=== PATIENT | female | born 1960 | race Caucasian/White ===

== ENCOUNTER → 2017-06-07 | Outpatient (CLI) | payer BC ==
[~2017-06-07] MED LIST: ACIDOPHILUS100 MG PO; ASPI-266 PO; ATOR40TA PO; BILB80CA PO; BIOT5TAB PO; FLUO40CA12 PO; GLUC-113 PO; HYDR118S10 PO; MELA1TAB20 PO; MULT-974 PO; OXYC-12 PO; OXYC-199 PO; QUET50TA PO; SLEEPING AID PO; ZLP5T PO; [UNRECOGNIZED DRUG - OTHER] PO
== END ==
LOC: CARD 07:13
PROVIDERS: ATTEND Nurse Practitioner Family
DX: R07.89 Other chest pain (principal); R06.02 Shortness of breath
CPT/HCPCS: 93306

== ENCOUNTER → 2017-06-08 | Outpatient (CLI) | payer BC ==
[~2017-06-08] VITALS: Ht 160 cm; Wt 122.5 kg
[~2017-06-08] MED LIST changes: +CATHETER FLUSH 10 ML SYR IV PRN; +REGADENOSON 0.4 MG/5 ML SYR (LEXISCAN) IV ONE
[2017-06-08 08:58] VITALS: BP 102/66
[2017-06-08 09:00] VITALS: BP 139/73
[2017-06-08 09:02] VITALS: BP 130/65
--- NOTE | 2017-06-11 08:47 | STRESS TEST ---
DATE OF SERVICE: 06/08/2017 RESTING AND POST-REGADENOSON TECHNETIUM-[address] IMAGING: Baseline images were carried out after injection of 10.18 mCi technetium-99 Tetrofosmin. This was followed by 0.4 mg regadenoson and 29 mCi technetium-99 Tetrofosmin for stress imaging. The electrocardiogram showed sinus rhythm at baseline and it did not change significantly with the regadenoson infusion. Overall, she tolerated the procedure well. She reported only mild shortness of breath after regadenoson, which resolved in a few minutes. Review of images at rest and following stress does not indicate significant perfusion defect consistent with significant myocardial ischemia or infarction. Gated images show normal global left ventricular systolic function with normal regional wall motion. Left ventricular ejection fraction is calculated to be 71%. Left ventricular end diastolic volume is 26 mL. TID is absent (1.04). CONCLUSIONS: 1. No evidence of significant myocardial ischemia or infarction on this study. 2. Normal regional wall motion. 3. Normal global left ventricular systolic function with a calculated ejection fraction of 71%. Job ID: [id number] DocumentID: [id number] Dictated Date: 06/10/2017 12:54:06 Attendant [employer] Date: 06/10/2017 15:13:59 Dictated By: MISTI PIERRE MD, MA, FACP, FACC,
== END ==
LOC: CARD 07:15
PROVIDERS: ATTEND Nurse Practitioner Family
DX: R07.89 Other chest pain (principal); R06.02 Shortness of breath
CPT/HCPCS: 78452; 93017

== ENCOUNTER → 2019-04-10 | Outpatient (CLI) | payer SELFPAY ==
[~2019-04-10] MED LIST changes: -CATHETER FLUSH 10 ML SYR IV PRN; -REGADENOSON 0.4 MG/5 ML SYR (LEXISCAN) IV ONE
== END ==
LOC: CARD 08:17
PROVIDERS: ATTEND Family Medicine
DX: I51.7 Cardiomegaly (principal); R05 Cough; I08.1 Rheumatic disorders of both mitral and tricuspid valves
CPT/HCPCS: 93306

== ENCOUNTER → 2019-05-29 | Outpatient (CLI) | payer OTHER ==
--- NOTE | 2019-05-29 14:08 | Diagnostic Imaging Report ---
PROCEDURE: CT chest without contrast. TECHNIQUE: Multiple contiguous axial images were obtained through the chest without the use of intravenous contrast. Auto Exposure Controls were utilized during the CT exam to meet ALARA standards for radiation dose reduction. INDICATION: Chronic dry cough. There are no prior CT chest examinations available for comparison. The plain film examination of the chest performed on 12/15/2013 failed to show any sign of acute cardiopulmonary abnormality. On this exam, the heart size is within normal limits and stable when compared to previous. The aorta is not abnormally dilated. There is no obvious mediastinal or hilar adenopathy noted. The thyroid gland is generally unremarkable. The lungs are clear and well aerated. There is no sign of failure, pneumonia or pleural effusion to indicate an acute abnormality. There is no parenchymal lung mass noted. Sections through the upper outer show that the liver is mildly enlarged and of lower density than usually seen. This does suggest fatty metamorphosis. The gallbladder is surgically absent. Bone windows show no sign of a fracture or of a destructive lesion. There is no obvious breast mass. According to our records the patient has not had a mammogram since 2014. The patient's had a recent (within the last year) mammogram elsewhere, then no further imaging would necessary. Otherwise mammography would be recommended. IMPRESSION: 1. There is no evidence for acute cardiopulmonary abnormality. There is no parenchymal lung mass identified either. 2. The liver is mildly enlarged and low density appearance of the liver does suggest fatty metamorphosis. 3. There is no obvious breast mass. Recommendations as above. Dictated by: Dictated on workstation # [id number]
== END ==
LOC: RAD 12:48
PROVIDERS: ATTEND Family Medicine
DX: R05 Cough (principal); R16.0 Hepatomegaly, not elsewhere classified; Z90.49 Acquired absence of other specified parts of digestive tract
CPT/HCPCS: 71250

== ENCOUNTER → 2019-06-09 | Outpatient (CLI) | payer OTHER | LOC: RT 07:56 | PROVIDERS: ATTEND Family Medicine | DX: R05 Cough (principal) | CPT/HCPCS: 94060; 94726; 94729 ==

== ENCOUNTER 2019-07-27 14:30 | Outpatient (CLI) | payer OTHER ==
[~2019-07-27] VITALS: Ht 160 cm; Wt 126.2 kg
[2019-07-27] MEDS ORDERED: NFBIOT1000 PO (14:59)
[2019-07-27] MEDS ORDERED: QUET100T69 PO (14:59)
[2019-07-27] MEDS ORDERED: MULT-974 PO (14:59)
[2019-07-27] MEDS ORDERED: CHOL10008 PO (14:59)
[2019-07-27] MEDS ORDERED: CYCL10TA9 PO (14:59)
[2019-07-27] MEDS ORDERED: BILB80CA PO (14:59)
[2019-07-27] MEDS ORDERED: LOSA25TA41 PO (14:59)
[2019-07-27] MEDS ORDERED: ASPI-999 PO (14:59)
[2019-07-27] MEDS ORDERED: CITA40TA11 PO (14:59)
[2019-07-27] MEDS ORDERED: LUTE20CA2 PO (14:59)
[2019-07-27] MEDS ORDERED: PANT20TA3 PO (14:59)
[2019-07-27] MEDS ORDERED: METF-397 PO (14:59)
== END 2019-07-27 14:51 | disposition home or self-care (01) ==
LOC: PREOP 14:30
PROVIDERS: ATTEND Surgery
DX: Z01.818 Encounter for other preprocedural examination (principal)

== ENCOUNTER 2019-08-01 09:56 | Day surgery (SDC) | payer OTHER ==
[~2019-08-01] VITALS: Ht 160 cm; Wt 127.0 kg
[~2019-08-01 09:56] MED LIST changes: +ASPI-999 PO; +CHOL10008 PO; +CITA40TA11 PO; +CYCL10TA9 PO; +LOSA25TA41 PO; +LUTE20CA2 PO; +METF-397 PO; +NFBIOT1000 PO; +PANT20TA3 PO; +QUET100T69 PO
[2019-08-01 10:00] VITALS: BP 149/100
[2019-08-01] MEDS ORDERED: LACTATED RINGERS 1,000 ML IV ONE (10:04)
[2019-08-01] MEDS ORDERED: LACTATED RINGERS 1,000 ML IV STA (10:08)
--- NOTE | 2019-08-01 10:10 | Progress Note-Pre Operative ---
Pre-Operative Progress Note H&P Reviewed The H&P was reviewed, patient examined and no changes noted. Date Seen by Provider: Aug 01, 2019 Time Seen by Provider: 10:06 Date H&P Reviewed: Aug 01, 2019 Time H&P Reviewed: 10:07 Pre-Operative Diagnosis: change in bowel habits, occult + stool, gerd YOLANDA BANSAL DO Aug 01, 2019 10:10
[2019-08-01] MEDS ORDERED: HURRICAINE EXT TUBE (BENZOCAINE) XX PRN (10:15)
[2019-08-01] MEDS ORDERED: MIDAZOLAM 2 MG/2 ML (VERSED) VIAL ONE (10:31)
[2019-08-01] MEDS ORDERED: PROPOFOL INJECTION 50 ML IV ONE (10:31)
--- NOTE | 2019-08-01 11:38 | Progress Note-Post Operative ---
Post-Operative Progess Note Surgeon (s)/Costume Shop Coordinator (s) Surgeon YOLANDA BANSAL DO Costume Shop Coordinator: na Pre-Operative Diagnosis change in bowel habits, occult + stool, gerd Post-Operative Diagnosis gastritis, colon polyps Procedure & Operative Findings Date of Procedure 08/01/19 Procedure Performed/Findings egd c biopsies, colonoscopy c hot bx polypectomy Anesthesia Type per mda Estimated Blood Loss Estimated blood loss (mL): min Specimens/Packing Specimens Removed antrum, body, ge, colon polyps YOLANDA BANSAL DO Aug 01, 2019 11:38
[2019-08-01 11:40] VITALS: BP 174/79
--- NOTE | 2019-08-01 11:40 | Discharge Inst-Simple/Standard ---
Discharge Inst-Standard Patient Instructions/Follow Up Plan of Care/Instructions/FU: 2 weeks Shaun Activity as Tolerated: Yes Discharge Diet: Regular Diet YOLANDA BANSAL DO Aug 01, 2019 11:39
[2019-08-01 11:45] VITALS: BP_SYST 174; BP_SYST 175; BP_DIAS 79; BP_DIAS 80
[2019-08-01] MEDS ORDERED: HURRICAINE EXT TUBE (BENZOCAINE) ONE (11:46)
[2019-08-01 12:15] VITALS: BP 137/83
[2019-08-01 12:20] VITALS: BP 137/83
--- NOTE | 2019-08-01 15:18 | Anesthesia-General Post-Op ---
MAC Patient Condition Mental Status/LOC: Same as Preop Cardiovascular: Satisfactory Nausea/Vomiting: Absent Respiratory: Satisfactory Pain: Controlled Complications: Absent Post Op Complications Complications None Follow Up Care/Instructions Patient Instructions None needed. Anesthesiology Discharge Order Discharge Order Patient is doing well, no complaints, stable vital signs, no apparent adverse anesthesia problems. No complications reported per nursing. VALERIA MÉNDEZ CRNA Aug 01, 2019 15:18
--- NOTE | 2019-08-01 17:07 | OPERATIVE REPORT ---
DATE OF SERVICE: 08/01/2019 PREOPERATIVE DIAGNOSES: Change in bowel habits, occult positive stool and gastroesophageal reflux disease. POSTOPERATIVE DIAGNOSES: Gastritis and colon polyps. PROCEDURE: EGD with biopsies, colonoscopy with hot biopsy polypectomy x5. SURGEON: Yolanda Dunn DO ANESTHESIA: Per MDA. ESTIMATED BLOOD LOSS: None. COMPLICATIONS: None. INDICATIONS: The patient is a 58-year-old female with change in bowel habits, occult positive stool and reflux. She has a history of colon polyps. She understands risks and benefits of procedure and wished to proceed with procedure. Consent was signed in the chart. DESCRIPTION OF PROCEDURE: The patient was taken to the endoscopy suite, placed in left lateral recumbent position. Timeout was performed. Scope was inserted in mouth, down the esophagus, stomach and into the duodenum without difficulty. There were no polyps, masses or ulcerations within the duodenum. Scope was slowly retracted back into the stomach where it was further insufflated. Slight erythematous changes consistent with gastritis present. Biopsy of the antrum was obtained. Scope was retroflexed noting again some slight gastritis. Biopsy of the body was obtained. Scope was returned to its normal position, slowly withdrawn to the distal esophagus. Slight erythematous changes, questionable reflux esophagitis. Biopsy of the GE junction was obtained. Scope was then slowly retracted back until completely removed noting no other pathology. Digital rectal exam was performed. There were no palpable polyps, masses or ulcerations. Scope was inserted in the rectum, advanced all the way to the cecum with minimal difficulty. Prep was adequate with irrigation and suction. Scope was then slowly retracted back. There were no polyps, masses or ulcerations within the cecum, ascending colon. In the transverse colon, two small polyps were present, which hot biopsy polypectomy was performed. Scope was then continuously slowly retracted back until the splenic flexure where there are three polyps, which hot biopsy polypectomy was performed on these. Scope was then continued slowly retracted back. There were no polyps, masses or ulcerations in the descending and sigmoid colon. Once in the rectum, scope was retroflexed noting no other pathology. Scope was returned to its normal position, slowly withdrawn until completely removed. The patient tolerated procedure well without any complications. She was taken to recovery room in stable condition. RECOMMENDATIONS: The patient will await biopsies and we will discuss this in 2 to 3 weeks. The patient will need repeat colonoscopy in 5 years. Any issues before that will be seen at that time. Job ID: [id number] DocumentID: [id number] Dictated Date: 08/01/2019 11:43:11 Radar Engineer Date: 08/01/2019 17:06:55 Dictated By: YOLANDA DUNN DO
== END 2019-08-01 12:40 | disposition home or self-care (01) ==
LOC: ENDO 09:56
PROVIDERS: ATTEND Surgery
DX: K29.70 Gastritis, unspecified, without bleeding (principal); D12.3 Benign neoplasm of transverse colon; K21.9 Gastro-esophageal reflux disease without esophagitis; R19.5 Other fecal abnormalities; I10 Essential (primary) hypertension; E78.5 Hyperlipidemia, unspecified; J44.9 Chronic obstructive pulmonary disease, unspecified; E11.40 Type 2 diabetes mellitus with diabetic neuropathy, unspecified; E66.01 Morbid (severe) obesity due to excess calories; Z68.42 Body mass index [BMI] 45.0-49.9, adult; Z90.710 Acquired absence of both cervix and uterus; Z79.02 Long term (current) use of antithrombotics/antiplatelets; Z79.82 Long term (current) use of aspirin; Z79.84 Long term (current) use of oral hypoglycemic drugs; Z79.899 Other long term (current) drug therapy; Z86.73 Personal history of transient ischemic attack (TIA), and cerebral infarction without residual deficits; Z82.49 Family history of ischemic heart disease and other diseases of the circulatory system; Z83.79 Family history of other diseases of the digestive system; Z82.3 Family history of stroke; Z82.5 Family history of asthma and other chronic lower respiratory diseases
CPT/HCPCS: 82962

== ENCOUNTER → 2019-09-05 | Outpatient (CLI) | payer OTHER ==
[~2019-09-05] MED LIST changes: +BENZ-13 PO; +CEFU250T80 PO
--- NOTE | 2019-09-05 13:29 | Diagnostic Imaging Report ---
EXAMINATION: CT head without contrast. TECHNIQUE: Multiple contiguous axial images were obtained through the brain without the use of intravenous contrast. All CT scans use one or more of the following dose optimizing techniques: automated exposure control, MA and/or KvP adjustment based on a patient size and exam type, or iterative reconstruction. HISTORY: Fall COMPARISON: None available. FINDINGS: The castillo-white matter differentiation is normal. No mass effect or midline shift. The ventricles are normal in size and configuration. Basilar cisterns are patent. There are no intra- or extra-axial fluid collections. There is no intracranial hemorrhage. The orbits are normal. Paranasal sinuses are normal. Mastoid air cells are clear. No soft tissue abnormality is seen. No osseus lesions or fractures are seen. IMPRESSION: 1. No acute intracranial abnormality. Dictated by: Dictated on workstation # [id number]
--- NOTE | 2019-09-05 14:06 | Diagnostic Imaging Report ---
INDICATION: Memory loss and slurred speech and recent fall. TECHNIQUE: MRI brain obtained without IV contrast and compared to 05/12/2016. FINDINGS: Diffusion-weighted images demonstrate no areas of diffusion signal abnormality to suggest acute ischemic change. There is no subdural or epidural collection. There is no significant white matter disease. There are a few punctate areas of signal change in the deep white matter which are nonspecific and similar to the previous study. Ventricles are nondilated. There is an anatomic variant of persistent cavum septum pellucidum. Visualized portions of the orbits and sinuses appear unremarkable. There is no pituitary lesion seen. IMPRESSION: Minimal nonspecific deep white matter change. No significant change from 05/12/2016. No acute abnormality. Dictated by: Dictated on workstation # [id number]
== END ==
LOC: RAD 13:09
PROVIDERS: ATTEND Family Medicine
DX: S09.90XA Unspecified injury of head, initial encounter (principal); R47.81 Slurred speech; R41.3 Other amnesia; W19.XXXA Unspecified fall, initial encounter
CPT/HCPCS: 70450; 70551

== ENCOUNTER 2019-11-06 14:21 | Emergency (ER) | payer SELFPAY ==
[~2019-11-06] VITALS: Ht 160 cm; Wt 136.0 kg
[~2019-11-06 14:21] MED LIST changes: -BENZ-13 PO; -CEFU250T80 PO
[2019-11-06] MEDS ORDERED: NS IV 1000 ML 1,000 ML IV ONE (14:44)
[2019-11-06] MEDS ORDERED: NS IV 1000 ML 1,000 ML IV SCH ×2 (14:44)
[2019-11-06] MEDS ORDERED: inSUlin (REGULAR) HUMAN 1 UNIT/0.01 ML (CHARGE PER UNIT) SC ONE (14:45)
[2019-11-06] MEDS ORDERED: cefTRIAXone FOR IV USE 1,000 MG in WATER (STERILE) FOR INJECTION 10 ML IV ONE (14:45)
[2019-11-06 14:56] LABS: BASOPHILS % (AUTO) 0 % (0-10); EOSINOPHILS % (AUTO) 0 % (0-10); HEMATOCRIT 44 % (35-52); HEMOGLOBIN 14.7 G/DL (11.5-16.0); LYMPHOCYTES # (AUTO) 1.3 X 10^3 (1.0-4.0); LYMPHOCYTES % (AUTO) 23 % (12-44); MEAN CORPUSCULAR HEMOGLOBIN 34 PG (25-34); MEAN CORPUSCULAR HGB CONC 33 G/DL (32-36); MEAN CORPUSCULAR VOLUME 101 FL (80-99); MEAN PLATELET VOLUME 8.9 FL (7.4-10.4); MONOCYTES # (AUTO) 0.2 X 10^3 (0.0-1.0); MONOCYTES % (AUTO) 4 % (0-12); NEUTROPHILS % (AUTO) 73 % (42-75); PLATELET COUNT 330 10^3/uL (130-400); RED CELL DISTRIBUTION WIDTH 12.7 % (10.0-14.5); WHITE BLOOD COUNT 5.5 10^3/uL (4.3-11.0)
[2019-11-06 15:04] LABS: INR 0.9 (0.8-1.4); PROTHROMBIN TIME PATIENT 12.6 SEC (12.2-14.7)
--- NOTE | 2019-11-06 15:05 | ED General ---
General Chief Complaint: Glucose Problems Stated Complaint: HIGH BLOOD SUGAR Nursing Triage Note: PT STATES CAME FROM [facility], BS WAS TOO HIGH TO READ, CURRENT BS 363 FSBS. PT VERY ANXIOUS. PT IS CURRENTLY ON ANTIBIOTIC AND PREDNISONE Nursing Sepsis Screen: No Definite Risk Source of Information: Patient Exam Limitations: No Limitations History of Present Illness Date Seen by Provider: Nov 06, 2019 Time Seen by Provider: 14:31 Initial Comments Patient presents to ER by private conveyance from the clinic of Dr. Brown complaint of blood sugar reading high. She's been having increased thirst, urinary frequency and general malaise. She's had a cough fevers. She went to the clinic and her glucometer read high. She is on metformin 500 twice a day does not take insulin. She was described with diabetes one year ago. She is urged to start on some injectable long-acting insulin but has resisted that thus far. She denies any chest pain nausea diarrhea, sweats or fever. Allergies and Home Medications Allergies Coded Allergies: No Known Drug Allergies (Unverified , 12/15/13) Home Medications Aspirin 81 Mg Tab.chew, 81 MG PO DAILY, (Reported) Atorvastatin Calcium 40 Mg Tablet, 40 MG PO DAILY, (Reported) Bilberry Fruit Extract 80 Mg Capsule, 80 MG PO DAILY, (Reported) Biotin 1,000 Mcg Tablet, 1,000 MCG PO DAILY, (Reported) Cholecalciferol (Vitamin D3) 1,000 Unit Tab.chew, 1,000 UNIT PO DAILY, (Reported) Citalopram Hydrobromide 40 Mg Tablet, 40 MG PO DAILY, (Reported) Cyclobenzaprine HCl 10 Mg Tablet, 10 MG PO TID PRN for MUSCLE SPASMS, (Reported) Losartan Potassium 25 Mg Tablet, 25 MG PO DAILY, (Reported) Lutein 20 Mg Capsule, 20 MG PO DAILY, (Reported) Metformin HCl 500 Mg Tablet, 1,000 MG PO BID, (Reported) take 2 (500mg) tabs Multivitamin 1 Each Tablet, 1 EACH PO DAILY, (Reported) Pantoprazole Sodium 20 Mg Tablet.dr, 20 MG PO DAILY, (Reported) Quetiapine Fumarate 100 Mg Tablet, 100 MG PO HS, (Reported) Patient Home Medication List Home Medication List Reviewed: Yes Review of Systems Review of Systems Constitutional: No chills, No fever; malaise EENTM: No ear discharge, No ear pain Respiratory: cough; No short of breath Cardiovascular: No edema, No Hx of Intervention Gastrointestinal: No abdominal pain, No nausea Genitourinary: No dysuria, No frequency Musculoskeletal: No back pain, No joint pain Skin: No pruritus, No rash Psychiatric/Neurological: Denies Headache, Denies Numbness Past Mlodfbw-Fjfpow-Avwtuq Hx Patient Social History Alcohol Use: Denies Use Recreational Drug Use: No (HX) Drug of Choice: MULTIPLE Smoking Status: Never a Smoker 2nd Hand Smoke Exposure: Yes Recent Foreign Travel: No Contact w/Someone Who Travel: No Recent Infectious Disease Expo: No Recent Hopitalizations: No Physical Abuse: No Sexual Abuse: No Immunizations Up To Date Tetanus Booster (TDap): Unknown Date of Influenza Vaccine: Aug 08, 2014 Seasonal Allergies Seasonal Allergies: Yes (mild) Past Medical History Surgeries: Yes (RIGHT ANKLE X2, LAP CARLOS, bilat TKR, ) Appendectomy, Gallbladder, Hysterectomy Respiratory: No Cardiac: No Neurological: No (2003 HAD A MILD SEIZURE, NONE SINCE THINKS IT WAS RELATED TO MEDS) Reproductive Disorders: No Genitourinary: No Gastrointestinal: Yes Gastroesophageal Reflux, Polyps Musculoskeletal: Yes Arthritis Endocrine: Yes Diabetes, Non-Insulin dep Cancer: No Psychosocial: Yes Anxiety, Depression Integumentary: No Blood Disorders: No Adverse Reaction/Blood Tranf: No Family Medical History Alcoholism 03 MOTHER Cancer 03 MOTHER (OVARIAN) 09 BROTHER Congestive heart failure 03 FATHER Dementia 03 MOTHER Family history: Arthritis 03 FATHER 03 MOTHER Family history: Asthma SON Family history: Cardiovascular disease 03 MOTHER Family history: Diabetes mellitus 03 MOTHER Family history: Hypertension 03 FATHER 03 MOTHER Myocardial infarction 03 MOTHER No Family History of: Abdominal aortic aneurysm Family history: Alzheimer's disease Family history: Breast disease Family history: Gastrointestinal disease Family history: Thyroid disorder Hereditary disease History of - respiratory disease Stroke Physical Exam Vital Signs Vital Signs - First Documented 11/06/19 14:35 Temp 36.9 Pulse 107 Resp 18 B/P (MAP) 174/104 (127) Pulse Ox 95 Capillary Refill : Less Than 3 Seconds Height, Weight, BMI Height: 5'3.00" Weight: 270lbs. 0.0oz. 122.422831lo; 53.00 BMI Method:Stated General Appearance: Mild Distress, Obese Eyes: Bilateral Eye Normal Inspection, Bilateral Eye PERRL, Bilateral Eye EOMI HEENT: PERRL/EOMI, TMs Normal, Normal ENT Inspection, Pharynx Normal; No Moist Mucous Membranes Neck: Full Range of Motion, Normal Inspection Respiratory: No Accessory Muscle Use, No Respiratory Distress, Rhonci (bilateral) Cardiovascular: Regular Rate, Rhythm, No Edema Gastrointestinal: Normal Bowel Sounds, Non Tender, Soft Extremity: Normal Capillary Refill, Normal Inspection Neurologic/Psychiatric: Alert, Oriented x3, No Motor/Sensory Deficits Skin: Normal Color, Warm/Dry Focused Exam Lactate Level 11/06/19 15:06: Lactic Acid Level 2.68*H 11/06/19 17:10: Lactic Acid Level Laboratory Tests Test 11/06/19 15:06 11/06/19 17:10 Lactic Acid Level 2.68 MMOL/L (0.50-2.00) *H Progress/Results/Core Measures Suspected Sepsis Recent Fever Within 48 Hours: No Infection Criteria Present: None New/Unexplained Altered Menta: No Sepsis Screen: No Definite Risk SIRS Temperature: Pulse: 107 Respiratory Rate: 18 Laboratory Tests 11/06/19 14:45: White Blood Count 5.5 Blood Pressure 174 /104 Mean: 127 11/06/19 15:06: Lactic Acid Level 2.68*H 11/06/19 17:10: Laboratory Tests 11/06/19 14:45: Creatinine 1.31H, INR Comment 0.9, Platelet Count 330, Total Bilirubin 0.5 Results/Orders Lab Results Laboratory Tests Test 11/06/19 14:44 11/06/19 14:45 11/06/19 15:06 11/06/19 15:27 Range/Units Glucometer 363 H 70-110 MG/DL White Blood Count 5.5 4.3-11.0 10^3/uL Red Blood Count 4.39 4.35-5.85 10^6/uL Hemoglobin 14.7 11.5-16.0 G/DL Hematocrit 44 35-52 % Mean Corpuscular Volume 101 H 80-99 FL Mean Corpuscular Hemoglobin 34 25-34 PG Mean Corpuscular Hemoglobin Concent 33 32-36 G/DL Red Cell Distribution Width 12.7 10.0-14.5 % Platelet Count 330 130-400 10^3/uL Mean Platelet Volume 8.9 7.4-10.4 FL Neutrophils (%) (Auto) 73 42-75 % Lymphocytes (%) (Auto) 23 12-44 % Monocytes (%) (Auto) 4 0-12 % Eosinophils (%) (Auto) 0 0-10 % Basophils (%) (Auto) 0 0-10 % Neutrophils # (Auto) 4.0 1.8-7.8 X 10^3 Lymphocytes # (Auto) 1.3 1.0-4.0 X 10^3 Monocytes # (Auto) 0.2 0.0-1.0 X 10^3 Eosinophils # (Auto) 0.0 0.0-0.3 10^3/uL Basophils # (Auto) 0.0 0.0-0.1 10^3/uL Prothrombin Time 12.6 12.2-14.7 SEC INR Comment 0.9 0.8-1.4 Activated Partial Thromboplast Time 30 24-35 SEC Sodium Level 136 135-145 MMOL/L Potassium Level 4.9 3.6-5.0 MMOL/L Chloride Level 102 98-107 MMOL/L Carbon Dioxide Level 22 21-32 MMOL/L Anion Gap 12 5-14 MMOL/L Blood Urea Nitrogen 22 H 7-18 MG/DL Creatinine 1.31 H 0.60-1.30 MG/DL Estimat Glomerular Filtration Rate 42 BUN/Creatinine Ratio 17 Glucose Level 420 *H 70-105 MG/DL Calcium Level 9.8 8.5-10.1 MG/DL Corrected Calcium 8.5-10.1 MG/DL Total Bilirubin 0.5 0.1-1.0 MG/DL Aspartate Amino Transf (AST/SGOT) 160 H 5-34 U/L Alanine Aminotransferase (ALT/SGPT) 277 H 0-55 U/L Alkaline Phosphatase 278 H 40-136 U/L Total Protein 8.0 6.4-8.2 GM/DL Albumin 4.7 H 3.2-4.5 GM/DL Lipase 14 8-78 U/L Lactic Acid Level 2.68 *H 0.50-2.00 MMOL/L Urine Color YELLOW Urine Clarity CLEAR Urine pH 5.5 5-9 Urine Specific [place] 1.015 L 1.016-1.022 Urine Protein NEGATIVE NEGATIVE Urine Glucose (UA) 3+ H NEGATIVE Urine Ketones NEGATIVE NEGATIVE Urine Nitrite POSITIVE NEGATIVE Urine Bilirubin NEGATIVE NEGATIVE Urine Urobilinogen 0.2 < = 1.0 MG/DL Urine Leukocyte Esterase NEGATIVE NEGATIVE Urine RBC (Auto) NEGATIVE NEGATIVE Urine RBC NONE /HPF Urine WBC 0-2 /HPF Urine Squamous Epithelial Cells RARE /HPF Urine Crystals NONE /LPF Urine Bacteria MODERATE H /HPF Urine Casts NONE /LPF Urine Mucus NEGATIVE /LPF Urine Culture Indicated CULTURE PENDING Test 11/06/19 16:18 11/06/19 17:10 Range/Units Glucometer 190 H 70-110 MG/DL Micro Results Microbiology 11/06/19 Influenza Types A,B Antigen (TIMOTEO) - Final, Complete My Orders Orders - ADRIANA HOLBROOK Cbc With Automated Diff (11/06/19 14:44) Comprehensive Metabolic Panel (11/06/19 14:44) Blood Culture (11/06/19 14:44) Sputum Culture (11/06/19 14:44) Urinalysis (11/06/19 14:44) Urine Culture (11/06/19 14:44) Protime With Inr (11/06/19 14:44) Partial Thromboplastin Time (11/06/19 14:44) Chest 1 View, Ap/Pa Only (11/06/19 14:44) Ed Iv/Invasive Line Start (11/06/19 14:44) Ed Iv/Invasive Line Start (11/06/19 14:44) Vital Signs Adult Sepsis Patie Q15M (11/06/19 14:44) O2 (11/06/19 14:44) Remove Rings In Anticipation O (11/06/19 14:44) Lactic Acid Analyzer (11/06/19 14:44) Influenza A And B Antigens (11/06/19 14:44) Ns Iv 1000 Ml (Sodium Chloride 0.9%) (11/06/19 14:44) Ceftriaxone For Iv Use (Rocephin For I (11/06/19 14:45) Ed Iv/Invasive Line Start (11/06/19 14:44) Ns Iv 1000 Ml (Sodium Chloride 0.9%) (11/06/19 14:44) Ns Iv 1000 Ml (Sodium Chloride 0.9%) (11/06/19 14:44) Accucheck Stat ONCE (11/06/19 14:44) Insulin (Regular) Human (Humulin R (Per (11/06/19 14:45) Lipase (11/06/19 15:35) Accucheck Stat ONCE (11/06/19 16:13) Medications Given in ED Current Medications Medications Dose Ordered Sig/Darci Route Start Time Stop Time Status Last Admin Dose Admin Ceftriaxone Sodium 1000 mg/ Sterile Water 10 ml @ 200 mls/hr ONCE ONCE IV 11/06/19 14:45 11/06/19 14:47 DC 11/06/19 15:55 200 MLS/HR Insulin Human Regular 10 unit ONCE ONCE SC 11/06/19 14:45 11/06/19 14:46 DC 11/06/19 15:12 10 UNIT Sodium Chloride 1,000 ml @ 0 mls/hr Q0M ONCE IV 11/06/19 14:44 11/06/19 14:46 DC 11/06/19 15:55 1,000 MLS/HR Vital Signs/I&O 11/06/19 14:35 Temp 36.9 Pulse 107 Resp 18 B/P (MAP) 174/104 (127) Pulse Ox 95 Capillary Refill : Less Than 3 Seconds Blood Pressure Mean: 127 Progress Note #1: Time: 15:05 Progress Note 10 units regular insulin subcutaneous, 3 L of IV fluid would be sufficient. Labs, chest x-ray, influenza swab, septic workup given her tachycardia and possible upper respiratory tract infection versus pneumonia. Progress Note #2: Time: 17:26 Progress Note Blood sugar improved significantly down to 190. She was very dehydrated from her hyperglycemia but she is doing better now and we can send her home. We'll put her on 10 units of Levemir to cover her tonight. Follow-up in the next day or 2 with primary care. Diagnostic Imaging Diagonstic Imaging: Xray Plain Films/CT/US/NM/MRI: chest (1v) Comments NAME: JUAN BRANDON [facility] REC#: [id number] PT STATUS: REG ER : 1960 PHYSICIAN: ADRIANA HOLBROOK MD ADMIT DATE: 11/06/19/ER Draft Date of Exam:11/06/19 CHEST 1 VIEW, AP/PA ONLY INDICATION: Hyperglycemia. COMPARISON: December 15, 2013. TECHNIQUE: Single radiograph of the chest dated November 06, 2019. FINDINGS: The cardiac silhouette is within normal limits in size. No significant pulmonary vascular congestion. The lungs are clear of focal pulmonary opacity. No pleural effusion. No pneumothorax. No acute osseous abnormality. IMPRESSION: Similar-appearing examination without acute cardiopulmonary abnormality. Dictated on workstation # [id number] Dict: 11/06/19 1547 Trans: 11/06/19 1602 [id number] Interpreted by: SARAH LOPEZ MD Electronically signed by: Reviewed: Reviewed by Me Departure Impression Primary Impression: Hyperglycemia Additional Impressions: Diabetes mellitus type 2 Qualified Codes: E11.69 - Type 2 diabetes mellitus with other specified complication Dehydration Bronchitis Disposition: HOME, SELF-CARE Condition: Improved Departure-Patient Inst. Decision time for Depature: 17:28 Referrals: DILLON BROWN MD (PCP/Family) Primary Care Physician Patient Instructions: Diabetes Type 2 (DC) Add. Discharge Instructions: Tomorrow morning call your clinic and request follow-up appointment in the next 1-2 days for your diabetes. The insulin we gave you today should cover you until tomorrow. Avoid concentrated carbohydrates, sweets, potatoes, rice, bread etc. No soda or sugary drinks. High-fiber vegetables, white meat and fats only. All discharge instructions reviewed with patient and/or family. Voiced understanding. Work/School Note: Work Release Form Date Seen in the Emergency Department: Nov 06, 2019 Return to Work: Nov 08, 2019 Copy Copies To 1: JOE KEY TITUS J Nov 06, 2019 15:05
[2019-11-06 15:12] LABS: ALANINE AMINOTRANSFERASE 277 U/L (0-55); ALBUMIN 4.7 GM/DL (3.2-4.5); ALKALINE PHOSPHATASE 278 U/L (40-136); BILIRUBIN,TOTAL 0.5 MG/DL (0.1-1.0); BUN/CREATININE RATIO 17; CALCIUM 9.8 MG/DL (8.5-10.1); CARBON DIOXIDE 22 MMOL/L (21-32); CHLORIDE 102 MMOL/L (98-107); CREATININE SERUM 1.31 MG/DL (0.60-1.30); GFR ESTIMATED 42; POTASSIUM 4.9 MMOL/L (3.6-5.0); SODIUM 136 MMOL/L (135-145)
[2019-11-06 15:29] LABS: GLUCOSE 420 MG/DL (70-105)
[2019-11-06 15:36] LABS: BILIRUBIN,URINE NEGATIVE (NEGATIVE); CLARITY,URINE CLEAR; COLOR,URINE YELLOW; GLUCOSE, URINE (UA) 3+ (NEGATIVE); KETONES,URINE NEGATIVE (NEGATIVE); LEUKOCYTE ESTERASE ,URINE NEGATIVE (NEGATIVE); NITRITE,URINE POSITIVE (NEGATIVE); PH,URINE 5.5 (5-9); PROTEIN,URINE NEGATIVE (NEGATIVE)
[2019-11-06 15:47] LABS: BACTERIA,URINE MODERATE /HPF; SQUAMOUS EPITHELIAL CELL,UR RARE /HPF; WBC,URINE 0-2 /HPF
--- NOTE | 2019-11-06 16:03 | Diagnostic Imaging Report ---
INDICATION: Hyperglycemia. COMPARISON: December 15, 2013. TECHNIQUE: Single radiograph of the chest dated November 06, 2019. FINDINGS: The cardiac silhouette is within normal limits in size. No significant pulmonary vascular congestion. The lungs are clear of focal pulmonary opacity. No pleural effusion. No pneumothorax. No acute osseous abnormality. IMPRESSION: Similar-appearing examination without acute cardiopulmonary abnormality. Dictated by: Dictated on workstation # [id number]
[2019-11-06 17:51] VITALS: BP 128/88
[2019-11-06] MEDS ORDERED: BENZ-13 PO (18:07)
[2019-11-10] MEDS ORDERED: CEFU250T80 PO (14:44)
== END 2019-11-06 17:51 | disposition home or self-care (01) ==
LOC: EDUNIT# 14:21 → ER 14:22
DX: E11.65 Type 2 diabetes mellitus with hyperglycemia (principal); E86.0 Dehydration; J40 Bronchitis, not specified as acute or chronic; F41.9 Anxiety disorder, unspecified; F32.9 Major depressive disorder, single episode, unspecified; K21.9 Gastro-esophageal reflux disease without esophagitis; Z79.84 Long term (current) use of oral hypoglycemic drugs; Z79.82 Long term (current) use of aspirin; Z77.22 Contact with and (suspected) exposure to environmental tobacco smoke (acute) (chronic); Z90.49 Acquired absence of other specified parts of digestive tract; Z90.710 Acquired absence of both cervix and uterus; Z82.49 Family history of ischemic heart disease and other diseases of the circulatory system; Z80.41 Family history of malignant neoplasm of ovary
CPT/HCPCS: 36415; 71045; 80053; 81000; 82962; 83605; 83690; 85025; 85610; 85730; 87040; 87077; 87088; 87186; 87804; 96361; 96365; 96372; 96375

== ENCOUNTER 2022-07-11 19:17 | Emergency (ER) | payer SELFPAY ==
[~2022-07-11] VITALS: Ht 160 cm; Wt 111.6 kg
[~2022-07-11 19:17] MED LIST changes: +BENZ-13 PO; +CEFU250T80 PO; -CITA40TA11 PO; +CITA40TA13 PO; +CYCL10TA25 PO; -CYCL10TA9 PO; +PANT20TA18 PO; -PANT20TA3 PO; +QUET100T33 PO; -QUET100T69 PO
[2022-07-11] MEDS ORDERED: NS IV 1000 ML 1,000 ML IV SCH ×2 (19:45→21:15)
--- NOTE | 2022-07-11 19:45 | ED General ---
General Chief Complaint: Neurological Problems Stated Complaint: WEAKNESS/DROWSY Source of Information: Patient (LIMITED AND VAGUE HISTORIAN) History of Present Illness Date Seen by Provider: Jul 11, 2022 Time Seen by Provider: 19:31 Initial Comments PT ARRIVES VIA POV FROM HOME, WITH PT WALKS INTO ER ON HER OWN, HOLDING 'S ARM PT'S MAIN COMPLAINT ON ARRIVAL, IS DRY MOUTH--SHE REPEATS THIS A MULTITUDE OF TIMES STATES SHE IS HERE BECAUSE SHE IS "REALLY DROWSY" SYMPTOMS BEGAN "A COUPLE OF HOURS AGO" STATES SHE WAS FINE EARLIER TODAY STATES SHE ALSO HAD THE SAME THING HAPPEN YESTERDAY EVENING NO HEADACHE NO BODY ACHES NO FEVER/SWEATS/CHILLS NO GI SYMPTOMS NO PARESTHESIAS OR MOTOR DEFICITS HAS SLIGHT COUGH--STATES "BECAUSE MY MOUTH IS SO DRY" NO URINARY SYMPTOMS NO CHEST PAIN NO SHORTNESS OF BREATH NO SYNCOPE NO FALLS OR HEAD INJURY PT IS DIABETIC BUT HAS NOT CHECKED HER SUGAR, STATES SHE RAN OUT OF TEST STRIPS OVER A MONTH AGO, AND HAS NOT ATTEMPTED TO GET ANY MORE. PT STATES SHE "ATE ALOT OF ICE CREAM LAST NIGHT BECAUSE I THOUGHT MY SUGAR MIGHT BE LOW" STATES SHE HAS BEEN EATING AND DRINKING NORMALLY, INCLUDING YESTERDAY AND TODAY HAS NOT HAD SUPPER, BUT HAS "SNACKED" ALL AFTER NOON PT LATER STATES SHE TOOK A SEROQUEL A COUPLE OF HOURS AGO FOR ANXIETY--STATES SHE HAS BEEN UNDER STRESS YESTERDAY AND TODAY; SHE ALSO TOOK ONE YESTERDAY STATES SHE IS SUPPOSED TO TAKE THEM EVERY DAY, BUT ONLY TAKES THEM "WHEN SHE NEEDS TO" --SO DOES NOT TAKE ON DAILY BASIS HER SYMPTOMS YESTERDAY AND TODAY BEGAN AFTER SHE TOOK SEROQUEL. DENIES ANY MISSED DOSES OF ROUTINE MEDICATIONS, OR ANY NEW MEDICATIONS OR DOSE CHANGES. HAS HAD COVID-19 VACCINE X 3 NO KNOWN SICK CONTACTS. PCP: DR. BROWN AT [facility] Allergies and Home Medications Allergies Coded Allergies: No Known Drug Allergies (Unverified , 12/15/13) Patient Home Medication List Aspirin (Aspirin) 81 Mg Tab.chew, 81 MG PO DAILY, (Reported) Entered as Reported by: IVON FERRIS on 07/27/19 1459 Atorvastatin Calcium (Lipitor) 40 Mg Tablet, 40 MG PO DAILY, (Reported) Entered as Reported by: INDIGO SANDERS on 08/18/16 1620 Benzonatate (Tessalon Perle) 100 Mg Capsule, 100 MG PO Q6H PRN for COUGH Prescribed by: ADRIANA HOLBROOK on 11/06/19 180 Bilberry Fruit Extract (Bilberry) 80 Mg Capsule, 80 MG PO DAILY, (Reported) Entered as Reported by: IVON FERRIS on 07/27/191458 Biotin (Biotin) 1,000 Mcg Tablet, 1,000 MCG PO DAILY, (Reported) Entered as Reported by: IVON FERRIS on 07/27/191458 Cefdinir (Cefdinir) 300 Mg Capsule, 300 MG PO BID Prescribed by: SIERRA MACK on 07/11/222106 Cefuroxime Axetil (Cefuroxime) 250 Mg Tablet, 250 MG PO BID, (Reported) Entered as Reported by: TERELL BECERRA on 11/10/19 144 Cholecalciferol (Vitamin D3) (Vitamin D3) 1,000 Unit Tab.chew, 1,000 UNIT PO DAILY, (Reported) Entered as Reported by: IVON FERRIS on 07/27/191458 Citalopram Hydrobromide (Citalopram HBr) 40 Mg Tablet, 40 MG PO DAILY, (Reported) Entered as Reported by: IVON FERRIS on 07/27/191458 Cyclobenzaprine HCl (Cyclobenzaprine HCl) 10 Mg Tablet, 10 MG PO TID PRN for MUSCLE SPASMS, (Reported) Entered as Reported by: IVON FERRIS on 07/27/19 145 Losartan Potassium (Losartan Potassium) 25 Mg Tablet, 25 MG PO DAILY, (Reported) Entered as Reported by: IVON FERRIS on 07/27/19 145 Lutein (Lutein) 20 Mg Capsule, 20 MG PO DAILY, (Reported) Entered as Reported by: IVON FERRIS on 07/27/191458 Metformin HCl (Metformin HCl) 500 Mg Tablet, 1,000 MG PO BID, (Reported) Entered as Reported by: IVON FERRIS on 07/27/191458 Multivitamin (Multi-Vitamin Daily) 1 Each Tablet, 1 EACH PO DAILY, (Reported) Entered as Reported by: IVON FERRIS on 07/27/191458 Pantoprazole Sodium (Pantoprazole Sodium) 20 Mg Tablet.dr, 20 MG PO DAILY, (Reported) Entered as Reported by: IVON FERRIS on 07/27/19 145 Quetiapine Fumarate (Quetiapine Fumarate) 100 Mg Tablet, 100 MG PO HS, (Reported) Entered as Reported by: IVON FERRIS on 07/27/19 1459 Past Ggnkcck-Goprra-Fxygwl Hx Immunizations Up To Date Tetanus Booster (TDap): Unknown Seasonal Allergies Seasonal Allergies: Yes (mild) Past Medical History Surgeries: Yes (RIGHT ANKLE X2, LAP CARLOS, bilat TKR, ) Appendectomy, Gallbladder, Hysterectomy Respiratory: No Cardiac: No Neurological: No (2002 HAD A MILD SEIZURE, NONE SINCE THINKS IT WAS RELATED TO MEDS) Reproductive Disorders: No Genitourinary: No Gastrointestinal: Yes Gastroesophageal Reflux, Polyps Musculoskeletal: Yes Arthritis Endocrine: Yes Diabetes, Non-Insulin dep Cancer: No Psychosocial: Yes Anxiety, Depression Integumentary: No Blood Disorders: No Adverse Reaction/Blood Tranf: No Family Medical History Alcoholism 03 MOTHER Cancer 03 MOTHER (OVARIAN) 09 BROTHER Congestive heart failure 03 FATHER Dementia 03 MOTHER Family history: Arthritis 03 FATHER 03 MOTHER Family history: Asthma SON Family history: Cardiovascular disease 03 MOTHER Family history: Diabetes mellitus 03 MOTHER Family history: Hypertension 03 FATHER 03 MOTHER Myocardial infarction 03 MOTHER No Family History of: Abdominal aortic aneurysm Family history: Alzheimer's disease Family history: Breast disease Family history: Gastrointestinal disease Family history: Thyroid disorder Hereditary disease History of - respiratory disease Stroke Physical Exam Vital Signs Vital Signs - First Documented 07/11/22 19:33 Temp 36.7 Pulse 74 Resp 22 B/P (MAP) 108/70 (83) Pulse Ox 94 Capillary Refill : Height, Weight, BMI Height: 5'3.00" Weight: 270lbs. 0.0oz. 122.774656et; 53.00 BMI Method:Stated General Appearance: No Apparent Distress, WD/WN, Obese, Other (GAIT IS STEADY, SPEECH IS RELATIVELY CLEAR BUT DOES HAVE A VERY DRY MOUTH. DOES APPEAR SLIGHTLY DROWSY) HEENT: PERRL/EOMI, Other (DRY ORAL MUCOSA) Respiratory: Normal Breath Sounds, No Accessory Muscle Use, No Respiratory Distress Cardiovascular: Regular Rate, Rhythm, No Murmur Gastrointestinal: Soft, Tenderness (MILD EPIGASTRIC TENDERNESSS) Back: No CVA Tenderness Extremity: Normal Capillary Refill, Normal Range of Motion, Non Tender, No Calf Tenderness, Pedal Edema (TRACE BILATERALLY) Neurologic/Psychiatric: Alert, Oriented x3, No Motor/Sensory Deficits, manager area II- XII Norm as Tested, Other (DROWSY) Skin: Normal Color, Warm/Dry; No Rash Progress/Results/Core Measures Suspected Sepsis SIRS Temperature: Pulse: Respiratory Rate: Laboratory Tests 07/11/22 19:44: White Blood Count 7.1 Blood Pressure / Mean: Laboratory Tests 07/11/22 19:44: Creatinine 1.24, Platelet Count 248, Total Bilirubin 0.5 Results/Orders Lab Results Laboratory Tests Test 07/11/22 19:37 07/11/22 19:44 07/11/22 20:00 07/11/22 20:15 Range/Units Glucometer 193 H 70-110 MG/DL White Blood Count 7.1 4.3-11.0 10^3/uL Red Blood Count 3.97 3.80-5.11 10^6/uL Hemoglobin 13.4 11.5-16.0 g/dL Hematocrit 39 35-52 % Mean Corpuscular Volume 99 80-99 fL Mean Corpuscular Hemoglobin 34 25-34 pg Mean Corpuscular Hemoglobin Concent 34 32-36 g/dL Red Cell Distribution Width 12.3 10.0-14.5 % Platelet Count 248 130-400 10^3/uL Mean Platelet Volume 9.5 9.0-12.2 fL Immature Granulocyte % (Auto) 0 % Neutrophils (%) (Auto) 50 42-75 % Lymphocytes (%) (Auto) 42 12-44 % Monocytes (%) (Auto) 6 0-12 % Eosinophils (%) (Auto) 1 0-10 % Basophils (%) (Auto) 1 0-10 % Neutrophils # (Auto) 3.6 1.8-7.8 10^3/uL Lymphocytes # (Auto) 3.0 1.0-4.0 10^3/uL Monocytes # (Auto) 0.4 0.0-1.0 10^3/uL Eosinophils # (Auto) 0.1 0.0-0.3 10^3/uL Basophils # (Auto) 0.1 0.0-0.1 10^3/uL Immature Granulocyte # (Auto) 0.0 0.0-0.1 10^3/uL Sodium Level 141 135-145 MMOL/L Potassium Level 3.9 3.6-5.0 MMOL/L Chloride Level 108 H 98-107 MMOL/L Carbon Dioxide Level 21 21-32 MMOL/L Anion Gap 12 5-14 MMOL/L Blood Urea Nitrogen 14 7-18 MG/DL Creatinine 1.24 0.60-1.30 MG/DL Estimat Glomerular Filtration Rate 50 BUN/Creatinine Ratio 11 Glucose Level 181 H 70-105 MG/DL Calcium Level 8.9 8.5-10.1 MG/DL Corrected Calcium 9.1 8.5-10.1 MG/DL Magnesium Level 1.8 1.6-2.4 MG/DL Total Bilirubin 0.5 0.1-1.0 MG/DL Aspartate Amino Transf (AST/SGOT) 27 5-34 U/L Alanine Aminotransferase (ALT/SGPT) 35 0-55 U/L Alkaline Phosphatase 150 H 40-136 U/L Total Protein 6.6 6.4-8.2 GM/DL Albumin 3.7 3.2-4.5 GM/DL Salicylates Level < 5.0 L 5.0-20.0 MG/DL Acetaminophen Level < 10 L 10-30 UG/ML Serum Alcohol < 10 <10 MG/DL Urine Color YELLOW Urine Clarity CLEAR Urine pH 6.0 5-9 Urine Specific [place] <=1.005 1.016-1.022 Urine Protein NEGATIVE NEGATIVE Urine Glucose (UA) NEGATIVE NEGATIVE Urine Ketones NEGATIVE NEGATIVE Urine Nitrite POSITIVE H NEGATIVE Urine Bilirubin NEGATIVE NEGATIVE Urine Urobilinogen 0.2 < = 1.0 MG/DL Urine Leukocyte Esterase 3+ H NEGATIVE Urine RBC (Auto) TRACE-I H NEGATIVE Urine RBC NONE /HPF Urine WBC 50-100 H /HPF Urine Squamous Epithelial Cells 2-5 /HPF Urine Crystals NONE /LPF Urine Bacteria LARGE H /HPF Urine Casts NONE /LPF Urine Mucus NEGATIVE /LPF Urine Culture Indicated YES Urine Opiates Screen NEGATIVE NEGATIVE Urine Oxycodone Screen NEGATIVE NEGATIVE Urine Methadone Screen NEGATIVE NEGATIVE Urine Propoxyphene Screen NEGATIVE NEGATIVE Urine Barbiturates Screen NEGATIVE NEGATIVE Ur Tricyclic Antidepressants Screen POSITIVE H NEGATIVE Urine Phencyclidine Screen NEGATIVE NEGATIVE Urine Amphetamines Screen NEGATIVE NEGATIVE Urine Methamphetamines Screen NEGATIVE NEGATIVE Urine Benzodiazepines Screen POSITIVE H NEGATIVE Urine Cocaine Screen NEGATIVE NEGATIVE Urine Cannabinoids Screen NEGATIVE NEGATIVE Influenza Type A (RT-PCR) Not Detected Not Detecte Influenza Type B (RT-PCR) Not Detected Not Detecte SARS-CoV-2 RNA (RT-PCR) Not Detected Not Detecte Test 07/11/22 20:30 Range/Units Ammonia 31 11-32 UMOL/L My Orders Orders - SIERRA MACK DO Accucheck Stat ONCE (07/11/22 19:39) Ed Iv/Invasive Line Start (07/11/22 19:39) Ekg Tracing (07/11/22 19:39) Monitor-Rhythm Ecg Trace Only (07/11/22 19:39) Acetaminophen (07/11/22 19:39) Alcohol (07/11/22 19:39) Cbc With Automated Diff (07/11/22 19:39) Comprehensive Metabolic Panel (07/11/22 19:39) Drug Screen Stat (Urine) (07/11/22 19:39) Magnesium (07/11/22 19:39) Thyroid Analyzer (07/11/22 19:39) Ua Culture If Indicated (07/11/22 19:39) Ct Head Wo-R/O Stroke (07/11/22 19:39) Ed Iv/Invasive Line Start (07/11/22 19:39) Ns Iv 1000 Ml (Sodium Chloride 0.9%) (07/11/22 19:45) Chest 1 View, Ap/Pa Only (07/11/22 19:39) Covid 19 Inhouse Test (07/11/22 19:39) Influenza A And B By Pcr (07/11/22 19:39) Isolation Central Supply Req (07/11/22 19:39) Salicylate (07/11/22 19:39) Ammonia (07/11/22 20:16) Urine Culture (07/11/22 20:00) Ceftriaxone 1 Gm Pre-Mix (Rocephin 1 Gm (07/11/22 20:49) Ed Iv/Invasive Line Start (07/11/22 21:14) Ns Iv 1000 Ml (Sodium Chloride 0.9%) (07/11/22 21:15) Vital Signs/I&O 07/11/22 19:33 Temp 36.7 Pulse 74 Resp 22 B/P (MAP) 108/70 (83) Pulse Ox 94 Capillary Refill : Progress Note : Progress Note UNEVENTFUL ER STAY PT STATES SHE FEELS BETTER AFTER FLUIDS AT DISMISSAL, SHE STATES SHE FEELS FINE, JUST SLEEPY AND IS READY TO GO HOME AND GO TO SLEEP Diagnostic Imaging Comments CT HEAD--NO ACUTE PROCESS, PER RADIOLOGIST VIA PHONE AT 2031 CXR--PER RADIOLOGIST REPORT AT 2048 FINDINGS: Lungs/pleura: Lungs are clear. There is no pneumothorax. There is no pleural effusion. Mediastinum: Unremarkable. Pulmonary vasculature: Unremarkable. Heart: Unremarkable. Bones/extrathoracic soft tissue: Unremarkable. IMPRESSION: There is no radiographic evidence of acute cardiopulmonary process. Reviewed: Reviewed by Me Departure Impression Primary Impression: UTI (urinary tract infection) Disposition: HOME, SELF-CARE Condition: Improved Departure-Patient Inst. Decision time for Depature: 21:05 Referrals: DILLON BROWN MD (PCP/Family) Primary Care Physician Patient Instructions: Urinary Tract Infection, Adult ED Add. Discharge Instructions: HOME, REST LOTS OF CLEAR LIQUIDS GET NEW GLUCOSE TEST STRIPS SOON POSSIBLE, AND CHECK YOUR BLOOD SUGAR 3 TIMES A DAY EVERY DAY TAKE SEROQUEL ONLY AT BEDTIME CONTINUE YOUR OTHER MEDICATIONS PRESCRIBED FOLLOW UP WITH DR. BROWN/[facility] [place]4 [place]YS FOR FURTHER CARE RETURN TO ER IF WORSE All discharge instructions reviewed with patient and/or family. Voiced understanding. Scripts Cefdinir (Cefdinir) 300 Mg Capsule 300 MG PO BID, #20 CAP Prov: SIERRA MACK DO 07/11/22 SIERRA MACK DO Jul 11, 2022 19:45
[2022-07-11 19:57] LABS: BASOPHILS # (AUTO) 0.1 10^3/uL (0.0-0.1); BASOPHILS % (AUTO) 1 % (0-10); EOSINOPHILS # (AUTO) 0.1 10^3/uL (0.0-0.3); EOSINOPHILS % (AUTO) 1 % (0-10); HEMATOCRIT 39 % (35-52); HEMOGLOBIN 13.4 g/dL (11.5-16.0); LYMPHOCYTES % (AUTO) 42 % (12-44); MEAN CORPUSCULAR HEMOGLOBIN 34 pg (25-34); MEAN CORPUSCULAR HGB CONC 34 g/dL (32-36); MEAN CORPUSCULAR VOLUME 99 fL (80-99); MEAN PLATELET VOLUME 9.5 fL (9.0-12.2); MONOCYTES # (AUTO) 0.4 10^3/uL (0.0-1.0); MONOCYTES % (AUTO) 6 % (0-12); NEUTROPHILS # (AUTO) 3.6 10^3/uL (1.8-7.8); NEUTROPHILS % (AUTO) 50 % (42-75); PLATELET COUNT 248 10^3/uL (130-400); WHITE BLOOD COUNT 7.1 10^3/uL (4.3-11.0)
[2022-07-11 20:20] LABS: BILIRUBIN,URINE NEGATIVE (NEGATIVE); CLARITY,URINE CLEAR; COLOR,URINE YELLOW; GLUCOSE, URINE (UA) NEGATIVE (NEGATIVE); KETONES,URINE NEGATIVE (NEGATIVE); LEUKOCYTE ESTERASE ,URINE 3+ (NEGATIVE); NITRITE,URINE POSITIVE (NEGATIVE); PROTEIN,URINE NEGATIVE (NEGATIVE)
[2022-07-11 20:31] LABS: BENZODIAZEPINES SCREEN URINE POSITIVE (NEGATIVE)
[2022-07-11 20:32] LABS: AMPHETAMINE SCREEN, URINE NEGATIVE (NEGATIVE); BARBITURATE SCREEN URINE NEGATIVE (NEGATIVE); CANNABINOID SCREEN, URINE NEGATIVE (NEGATIVE); COCAINE SCREEN URINE NEGATIVE (NEGATIVE); METHADONE STAT NEGATIVE (NEGATIVE); OPIATE SCREEN URINE NEGATIVE (NEGATIVE); OXYCODONE STAT NEGATIVE (NEGATIVE); PROPOXYPHENE STAT NEGATIVE (NEGATIVE); TRICYCLIC ANTIDEPRESSANTS SCRE POSITIVE (NEGATIVE)
[2022-07-11 20:38] LABS: ALANINE AMINOTRANSFERASE 35 U/L (0-55); ALBUMIN 3.7 GM/DL (3.2-4.5); ALKALINE PHOSPHATASE 150 U/L (40-136); BILIRUBIN,TOTAL 0.5 MG/DL (0.1-1.0); BUN/CREATININE RATIO 11; CALCIUM 8.9 MG/DL (8.5-10.1); CARBON DIOXIDE 21 MMOL/L (21-32); CHLORIDE 108 MMOL/L (98-107); CREATININE SERUM 1.24 MG/DL (0.60-1.30); GFR ESTIMATED 50; GLUCOSE 181 MG/DL (70-105); MAGNESIUM 1.8 MG/DL (1.6-2.4); POTASSIUM 3.9 MMOL/L (3.6-5.0); SALICYLATE < 5.0 MG/DL (5.0-20.0); SODIUM 141 MMOL/L (135-145); TOTAL PROTEIN 6.6 GM/DL (6.4-8.2)
--- NOTE | 2022-07-11 20:41 | Diagnostic Imaging Report ---
CLINICAL INDICATIONS: Patient with neuro deficit. EXAM: Axial CT scan of the brain performed without IV contrast. High-resolution axial CT brain images with sagittal and coronal reformations were also created. Auto Exposure Controls were utilized during the CT exam to meet ALARA standards for radiation dose reduction. COMPARISON: Head CT without contrast and MRI of the brain without contrast dated 09/05/2019. FINDINGS: There is no evidence of acute cerebral infarct, intracranial hemorrhage, or gross mass effect. The brain parenchymal volume appears appropriate for patient's age. There is normal castillo-white matter distinction. There is no significant midline shift or herniation. There is no evidence of hydrocephalus. The basal cisterns are unremarkable. The skull, extracranial soft tissue, and orbits are unremarkable. There is moderate consolidation involving the left maxillary sinus. Temporal bones show no significant abnormality. IMPRESSION: There is no CT evidence of acute intracranial process. There is no dense vessel sign. Results of this report were discussed with Dr. Huma Koenig via the telephone on 07/11/2022 at 2030 hours. Dictated by: Dictated on workstation # [id number]
[2022-07-11 20:43] LABS: BACTERIA,URINE LARGE /HPF; WBC,URINE 50-100 /HPF
--- NOTE | 2022-07-11 20:45 | Diagnostic Imaging Report ---
CLINICAL INDICATION: Patient with altered mental status. EXAM: Portable chest x-ray upright view. COMPARISON: Chest x-ray dated 11/06/2019. FINDINGS: Lungs/pleura: Lungs are clear. There is no pneumothorax. There is no pleural effusion. Mediastinum: Unremarkable. Pulmonary vasculature: Unremarkable. Heart: Unremarkable. Bones/extrathoracic soft tissue: Unremarkable. IMPRESSION: There is no radiographic evidence of acute cardiopulmonary process. Dictated by: Dictated on workstation # [id number]
[2022-07-11 20:48] LABS: ACETAMINOPHEN < 10 UG/ML (10-30)
[2022-07-11] MEDS ORDERED: cefTRIAXone 1 GM PRE-MIX 50 ML IV STA (20:49)
[2022-07-11] MEDS ORDERED: CEFD300C3 PO (21:07)
[2022-07-11 21:29] LABS: TSH (THYROID ANALYZER) 1.05 UIU/ML (0.35-4.94)
[2022-07-11 22:26] VITALS: BP 97/69
== END 2022-07-11 22:26 | disposition home or self-care (01) ==
LOC: EDUNIT# 19:17 → ER 19:19
DX: N39.0 Urinary tract infection, site not specified (principal); E66.9 Obesity, unspecified; Z68.41 Body mass index [BMI] 40.0-44.9, adult; Z20.822 Contact with and (suspected) exposure to COVID-19
CPT/HCPCS: 70450; 71045; 80053; 80306; 81000; 82140; 82947; 83735; 84443; 85025; 87077; 87088; 87636; 93041; 99284; G0480 ×3; 36415; 80320; 80329; 87186; 93005

== ENCOUNTER → 2023-08-25 | Outpatient (CLI) | payer SELFPAY ==
[~2023-08-25] MED LIST changes: +CEFD300C3 PO
== END ==
LOC: LAB 13:41
PROVIDERS: ATTEND Family Medicine
DX: R74.01 Elevation of levels of liver transaminase levels (principal)
CPT/HCPCS: 36415; 86255